=== PATIENT | female | born 2000 | race Caucasian/White ===

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

== ENCOUNTER 2021-06-05 03:28 | Inpatient (IN) ==
[2021-06-05] MEDS ORDERED: Buffered Lidocaine 1% SYRIN 1 ml INTRADERM ONE (04:18)
[2021-06-05] MEDS ORDERED: Lactated Ringers 1000 ml BAG 1,000 ML IV ONE (04:18)
[2021-06-05] MEDS ORDERED: Lactated Ringers 1000 ml BAG 1,000 ML IV SCH ×2 (05:00→16:00)
[2021-06-05 05:29] LABS: Rapid COVID-19 Molecular Undetected (Undetected)
[2021-06-05 05:46] LABS: Urine Benzodiazepine Screen None Detected (None Detect); Urine Cannabinoids Screen None Detected (None Detect); Urine Opiates Screen None Detected (None Detect)
[2021-06-05 09:05] LABS: Urine Appearance Clear; Urine Bilirubin Negative (Negative); Urine Blood Negative (Negative); Urine Color Yellow; Urine Glucose Negative (Negative); Urine Ketones Negative (Negative); Urine Nitrite Negative (Negative); Urine Protein 1+(30 mg/dL) (Negative); Urine Specific Gravity 1.015 (1.002-1.030); Urine Urobilinogen Negative (Negative)
[2021-06-05 09:12] LABS: Urine Bacteria Absent (Absent); Urine Red Blood Cell Absent (Absent); Urine Squamous Epithelial Cell Present (Absent); Urine White Blood Cell Trace(0-5/hpf) (Absent)
[2021-06-05] MEDS ORDERED: Witch Hazel PAD JAR TOPICAL PRN (15:28)
[2021-06-05] MEDS ORDERED: Dibucaine 1% OINT 28.35 GM TUBE PR PRN (15:28)
[2021-06-05] MEDS ORDERED: Oxytocin 10 UNITS/ML 1 ML VIAL IM ONE (16:51)
[2021-06-06 07:14] LABS: ABS Eosinophils 0.1 10^3/ul (0-0.6); ABS Lymphocytes 2.1 10^3/ul (1.0-4.8); ABS Monocytes 1.2 10^3/ul (0-0.8); ABS Neutrophils 8.4 10^3/ul (1.5-7.7); Eosinophil % 0.7 %; Hematocrit 34 % (35-47); Hemoglobin 11.5 g/dL (12.0-16.0); Lymphocyte % 17.5 %; Mean Corpuscular HGB Conc 34 g/dL (31-36); Mean Corpuscular Hemoglobin 29 pg (27-31); Mean Corpuscular Volume 85 fL (80-97); Mean Platelet Volume 8.3 fL (7.4-10.4); Platelet Count 216 10^3/uL (150-450); Red Blood Count 3.97 10^6 /uL (3.70-4.87); Red Cell Distribution Width 14 % (10-15); White Blood Count 11.8 10^3/uL (3.5-10.8)
[2021-06-07] MEDS ORDERED: Flu vaccine *QUAD* 2021-22* 0.5 ML SYRINGE IM ONE (08:30)
[2021-06-07 11:34] VITALS: BP 113/51
== END 2021-06-07 12:20 | disposition home or self-care (01) | DRG 541 ==
LOC: MCHOBOUT 03:28 → MCHOB 04:29
PROVIDERS: ADMIT Midwife; ATTEND Midwife

== ENCOUNTER 2023-11-14 13:39 | Inpatient (IN) ==
[2023-11-14] MEDS ORDERED: Prochlorperazine 5 mg/ml 2 ml VIAL (10 mg) IV PRN (13:45)
[2023-11-14] MEDS ORDERED: Lidocaine 1% VIAL 10 MG/ML 30 ML VIAL INJ PRN (13:45)
[2023-11-14] MEDS ORDERED: Lactated Ringers 1000 ml BAG 1,000 ML IV SCH ×2 (14:00→16:00)
[2023-11-14] MEDS: Lactated Ringers 1000 ml BAG 1,000 ML IV ONE (14:37)
[2023-11-14] MEDS ORDERED: Oxytocin in LR 20,000 MILLI.UNIT/1,000 ML BAG IV ONE (14:46)
[2023-11-14 14:54] LABS: ABS Lymphocytes 1.6 10^3/uL (1.0-4.8); ABS Monocytes 0.9 10^3/uL (0.0-0.9); ABS Neutrophils 8.3 10^3/uL (1.5-7.6); ABS Nucleated RBC 0.01 10^3/ul; Eosinophil % 0.1 %; Hematocrit 40.9 % (35-45); Hemoglobin 14.1 g/dL (11.5-14.3); Lymphocyte % 14.4 %; Mean Corpuscular Hemoglobin 29.2 pg (27-33); Mean Corpuscular Hgb Conc 34.3 g/dL (31-36); Mean Platelet Volume 8.3 fL (7.5-11.2); Nucleated Red Blood Cells % 0.1 %/100WBC (0.0-0.8); Platelet Count 219 10^3/uL (150-450); Red Blood Count 4.81 10^6/uL (3.63-4.92); Red Cell Distribution Width 15.3 % (12-17); White Blood Count 10.8 10^3/uL (3.8-11.8)
[2023-11-14] MEDS: Buffered Lidocaine 1% SYRIN 1 ml INTRADERM ONE (15:00)
[2023-11-14] MEDS: Lidocaine 1.5% EPI 1:200,000 30 ML SDV ONE (15:01)
[2023-11-14] MEDS ORDERED: Glycerin ADULT 2.4 gm SUPP PR PRN (15:33)
[2023-11-14] MEDS ORDERED: Oxytocin in LR 20,000 MILLI.UNIT/1,000 ML BAG IV SCH (15:35)
[2023-11-14] MEDS: Dibucaine 1% OINT 28.35 GM TUBE PR PRN (17:16)
[2023-11-14] MEDS: Witch Hazel PAD JAR TOPICAL PRN (17:16)
[2023-11-14 18:18] LABS: Urine Benzodiazepine Screen None Detected (None Detect); Urine Cannabinoids Screen None Detected (None Detect); Urine Opiates Screen None Detected (None Detect)
[2023-11-15 07:02] LABS: ABS Eosinophils 0.1 10^3/uL (0.0-0.5); ABS Lymphocytes 2.3 10^3/uL (1.0-4.8); ABS Neutrophils 6.7 10^3/uL (1.5-7.6); ABS Nucleated RBC 0.01 10^3/ul; Eosinophil % 0.8 %; Hematocrit 35.7 % (35-45); Hemoglobin 12.1 g/dL (11.5-14.3); Lymphocyte % 22.5 %; Mean Corpuscular Hemoglobin 29.2 pg (27-33); Mean Platelet Volume 8.2 fL (7.5-11.2); Nucleated Red Blood Cells % 0.1 %/100WBC (0.0-0.8); Platelet Count 184 10^3/uL (150-450); Red Blood Count 4.15 10^6/uL (3.63-4.92); Red Cell Distribution Width 14.8 % (12-17)
[2023-11-15 21:53] VITALS: BP 122/47
== END 2023-11-16 10:41 | disposition home or self-care (01) | DRG 560 ==
LOC: MCHOBOUT 13:39 → MCHOB 13:44
PROVIDERS: ADMIT Advanced Practice Midwife; ATTEND Advanced Practice Midwife